=== PATIENT | male | born 1985 | race African-American/Black ===

== ENCOUNTER 2024-04-26 14:02 | Emergency (ER) | payer OTHER ==
[~2024-04-26] VITALS: Ht 175.3 cm; Wt 66.0 kg
[2024-04-26 14:12] VITALS: BP 132/89; RESP 18; TEMP 98.2; O2SAT 98
[2024-04-26 14:14] VITALS: PULSE 117
== END 2024-04-26 19:32 | disposition home or self-care (01) ==
LOC: ER 14:02
DX: R07.89 Other chest pain (principal); M54.9 Dorsalgia, unspecified; M54.2 Cervicalgia; J45.909 Unspecified asthma, uncomplicated; V49.9XXA Car occupant (driver) (passenger) injured in unspecified traffic accident, initial encounter; Y93.89 Activity, other specified; Y92.89 Other specified places as the place of occurrence of the external cause; Y99.8 Other external cause status
CPT/HCPCS: 71045; 99283